=== PATIENT | female | born 1965 | race Caucasian/White ===

== ENCOUNTER 2016-06-21 08:46 | Day surgery (SDC) | payer BC ==
[2016-06-21] MEDS ORDERED: PROPOFOL 10 MG/ML VIAL IV ONE (14:00)
[2016-06-21] MEDS ORDERED: LIDOCAINE 2% MDV (20MG/ML) 20ML VIAL IV ONE (14:00)
[2016-06-21] MEDS ORDERED: MIDAZOLAM HCL 2MG/2ML VIAL IV ONE (14:00)
--- NOTE | 2016-06-22 12:20 | Operative Note ---
DATE OF SURGERY: 06/21/2016 REFERRING PHYSICIAN: Negro Duenas DO PREOPERATIVE DIAGNOSIS: See below. POSTOPERATIVE DIAGNOSIS: See below. PROCEDURE: COLONOSCOPY to the cecum. INDICATION: Colorectal cancer screening. Intravenous sedation was administered by the Department of Anesthesiology and included Diprivan titrated to effect. PROCEDURE: Following informed consent from this alert individual, including a discussion of the risks and benefits of the procedure and an opportunity for the patient to ask questions, the patient was placed in the left lateral decubitus position. A digital rectal examination was performed. No abnormalities were detected. Following this, an Olympus [id number] video colonoscope was inserted into the rectum without resistance. The rectal mucosa had a normal appearance, with normal folds and distensibility. The colonoscope was advanced up through the colon to the level of the cecum without difficulty. Throughout the bowel, the mucosa appeared normal, the folds are normal and the bowel is fairly well distensible. The cecum was defined by noting the appendiceal orifice and ileocecal valve. The colon preparation was good. Retroflexion in the cecum was endoscopically unremarkable. From the base of the cecum, the colonoscope was then slowly withdrawn. No abnormalities were detected. Retroflexion in the rectum was endoscopically normal. The instrument was removed. The patient tolerated the procedure well and was returned to the recovery area in stable condition. IMPRESSION: Normal colonoscopy to the cecum. RECOMMENDATIONS: Patient was advised to have recheck colonoscopy in 10 years' time or sooner if problems arise. Followup will be with Dr. Negro Duenas. As always, thank you for allowing me to participate in the care of your patient. Waldo Whitaker DO CC: Negro Duenas DO [facility]
== END 2016-06-21 10:45 | disposition home or self-care (01) ==
LOC: HOP 08:46
PROVIDERS: ATTEND Internal Medicine Gastroenterology
DX: Z12.11 Encounter for screening for malignant neoplasm of colon (principal)
CPT/HCPCS: 00810; G0121

== ENCOUNTER 2016-07-15 01:27 | Emergency (ER) | payer BC ==
[2016-07-15] MEDS ORDERED: HYDROMORPHONE HCL 1 MG/ML CPJ IM ONE (01:52)
[2016-07-15] MEDS ORDERED: PROMETHAZINE HCL 25 MG/ML VIAL IM ONE (01:53)
[2016-07-15] MEDS ORDERED: CLINDAMYCIN 600MG/4ML VIAL 600 MG in 0.9 % SODIUM CHLORIDE 100ML 100 ML IV ONE (03:04)
--- NOTE | 2016-07-15 03:36 | Emergency Department Record ---
History of Present Illness - General Chief complaint: ENT Stated complaint: LEFT EAR PAIN Time Seen by Provider: 07/15/16 01:42 Source: Patient Mode of Arrival: Ambulatory Limitations: No limitations - History of Present Illness Initial comments: pt has had an earache for 3 wks. she went to [facility] 2 days ago and was started on a z-pack which she has had 2 days worth. she was also stared on ultram. she said the pain has gotten much worse and now the whole side of her head is hurting and she has lost her hearing in that ear. she states that her ear was draining today. she states she took two old vicodin she had on hand and it has not touched the pain. she did have a long plane flight the end of may. she has not had ear problems since she was a child MD complaint: Ear pain Onset/Timin -: Days(s) Location: L ear Severity: Moderate Severity scale (1-10): 10 Consistency: Getting worse Improves with: None Worsens with: None Associated Symptoms: Discharge from ear, Hearing loss - Related Data Allergies Allergy/AdvReac Type Severity Reaction Status Date / Time erythromycin base AdvReac stomach Verified 07/15/16 01:39 pain meperidine HCl [From Demerol] AdvReac VOMITING Verified 07/15/16 01:39 Travel Screening - Travel/Exposure Within Last 30 Days Have you traveled within the last 30 days?: No - Travel/Exposure Within Last Year Have you traveled outside the [place] in the last year?: No - Additonal Travel Details Have you been exposed to anyone with a communicable illness?: No - Travel Symptoms Symptom Screening: None Review of Systems Reviewed: No additional complaints except as noted below Constitutional: Reports: As per HPI. Denies: Chills, Fever, Malaise, Night sweats, Weakness, Weight change Eyes: Reports: As per HPI. Denies: Eye discharge, Eye pain, Photophobia, Vision change ENT: Reports: As per HPI. Denies: Congestion, Dental pain, Ear pain, Epistaxis , Hearing loss, Throat pain Respiratory: Reports: As per HPI. Denies: Cough, Dyspnea, Hemoptysis, Stridor, Wheezes Cardiovascular: Reports: As per HPI. Denies: Arrhythmia, Chest pain, Dyspnea on exertion, Edema, Murmurs, Orthopnea, Palpitations, Paroxysmal nocturnal dyspnea, Rheumatic Fever, Syncope Endocrine: Reports: As per HPI. Denies: Fatigue, Heat or cold intolerance, Polydipsia, Polyuria Gastrointestinal: Reports: As per HPI. Denies: Abdominal pain, Constipation, Diarrhea, Hematemesis, Hematochezia, Melena, Nausea, Vomiting Genitourinary: Reports: As per HPI. Denies: Abnormal menses, Discharge, Dyspareunia, Dysuria, Frequency, Hematuria, Incontinence, Retention, Urgency Musculoskeletal: Reports: As per HPI. Denies: Arthralgia, Back pain, Gout, Joint swelling, Myalgia, Neck pain Skin: Reports: As per HPI. Denies: Bruising, Change in color, Change in hair/ nails, Lesions, Pruritus, Rash Neurological: Reports: As per HPI. Denies: Abnormal gait, Confusion, Headache, Numbness, Paresthesias, Seizure, Tingling, Tremors, Vertigo, Weakness Psychiatric: Reports: As per HPI. Denies: Anxiety, Auditory hallucinations, Depression, Homicidal thoughts, Suicidal thoughts, Visual hallucinations Hematological/Lymphatic: Reports: As per HPI. Denies: Anemia, Blood Clots, Easy bleeding, Easy bruising, Swollen glands Past Medical History - SOCIAL HISTORY Smoking Status: Never smoker Alcohol Use: None Drug Use: None - RESPIRATORY Hx Respiratory Disorders: Yes Hx Bronchitis: Yes Hx Sleep Apnea: Yes Hx of CPAP: Yes - CARDIOVASCULAR Hx Cardio Disorders: No - NEURO Hx Neuro Disorders: Yes Hx Headaches: Yes - GI Hx GI Disorders: No - Hx Genitourinary Disorders: No - ENDOCRINE Hx Endocrine Disorders: No - MUSCULOSKELETAL Hx Musculoskeletal Disorders: No - PSYCH Hx Psych Problems: No - HEMATOLOGY/ONCOLOGY Hx Hematology/Oncology Disorders: No Family Medical History Any Significant Family History?: No Hx Cancer: Mother Hx Heart Disease: Father Physical Exam - General General Appearance: Alert, Oriented x3, Cooperative, Mild distress - Head Head exam: Normal inspection - Eye Eye exam: Normal appearance, PERRL, EOMI Pupils: Normal accommodation - ENT ENT exam: Normal exam, Mucous membranes moist, Normal external ear exam, Normal orophraynx, Other (l tm perforated, canal has swelling and is exquisitely tender. mastoid is tender) Ear exam: Normal external inspection. negative: External canal tenderness Nasal Exam: Normal inspection. negative: Discharge, Sinus tenderness Mouth exam: Normal external inspection, Tongue normal Teeth exam: Normal inspection. negative: Dental caries Throat exam: Normal inspection. negative: Tonsillar erythema, Tonsillar exudate - Neck Neck exam: Normal inspection, Full ROM. negative: Tenderness - Respiratory Respiratory exam: Normal lung sounds bilaterally. negative: Respiratory distress - Cardiovascular Cardiovascular Exam: Regular rate, Normal rhythm, Normal heart sounds - GI/Abdominal GI/Abdominal exam: Soft, Normal bowel sounds. negative: Tenderness - Rectal Rectal exam: Deferred - exam: Deferred - Extremities Extremities exam: Normal inspection, Full ROM, Normal capillary refill. negative: Tenderness - Back Back exam: Reports: Normal inspection, Full ROM. Denies: Muscle spasm, Rash noted, Tenderness - Neurological Neurological exam: Alert, CN II-XII intact, Normal gait, Oriented X3 - Psychiatric Psychiatric exam: Normal affect, Normal mood - Skin Skin exam: Dry, Intact, Normal color, Warm Course Vital Signs 07/15/16 07/15/16 01:34 02:34 Temperature 98.7 F Pulse Rate 70 Pulse Rate [ 60 Pulse Ox Probe] Respiratory 20 20 Rate Blood Pressure 137/83 Blood Pressure 128/73 [Left Arm] Pulse Ox 98 98 Medical Decision Making - Lab Data Result diagrams: 07/15/16 03:30 07/15/16 03:30 Disposition Disposition: Transfer Clinical Impression: Mastoiditis, acute Qualifiers: Laterality: left Qualified Code(s): H70.002 - Acute mastoiditis without complications, left ear Disposition: Acute Care Hospital Transfer Transfer To: [facility] Reason For Transfer: acute mastoiditis Accepting Physician: dr meza Time Discussed w/Accepting Physician: 04:14 Forms: Patient Portal Access
[2016-07-15 03:39] LABS: BASO % 0.3 % (0-6); EOS % 3.7 % (0-6); GRAN % 59.1 % (47-80); HEMATOCRIT 40.7 % (35.0-47.0); LYMPH % 30.3 % (16-45); MEAN CELL VOLUME 87.9 fl (81-97); MEAN CORPUSCULAR HEMOGLOBIN 28.1 pg (27-33); MEAN CORPUSCULAR HGB CONC 31.9 g/dl (32-36); MEAN PLATELET VOLUME 9.6 fl (7.4-10.4); MONO % 6.6 % (0-9); PLATELET COUNT 280 K/uL (130-400); RED BLOOD COUNT 4.63 M/uL (3.80-5.40); RED CELL DISTRIBUTION WIDTH 13.1 % (11.5-14.5); WHITE BLOOD COUNT W/O DIFF 9.9 K/uL (4.2-12.2)
[2016-07-15 03:49] LABS: ANION GAP 8.8 (7-16); BLOOD UREA NITROGEN 18 mg/dL (7-17); CARBON DIOXIDE 30.2 mmol/L (22-30); CREATININE 0.9 mg/dL (0.52-1.04); EST GLOMERULAR FILTRATION RATE > 60 ml/min; GLUCOSE,RANDOM 98 mg/dL (70-110)
[2016-07-15] MEDS ORDERED: HYDROMORPHONE HCL 1 MG/ML CPJ IVP ONE (04:16)
== END 2016-07-15 04:40 | disposition short-term general hospital (02) ==
LOC: ER 01:27
DX: H70.092 Acute mastoiditis with other complications, left ear (principal); H91.92 Unspecified hearing loss, left ear
CPT/HCPCS: 99285 ×2; 96374; 96372; 96375; 85025; 80048; 70480; J1170; J2550